=== PATIENT | female | born 1995 | race Two or more races ===

== ENCOUNTER 2017-11-04 07:08 | Day surgery (SDC) | payer OTHER, SELFPAY ==
[2017-11-04 07:29] LABS: Internal QC Validated? YES +Cl - CLEAR BKGD; Pregnancy, Urine Negative Negative
[2017-11-04 07:30] VITALS: BP 108/66; PULSE 84; RESP 16; O2SAT 100; BMI 27.0
[2017-11-04 07:42] LABS: Hematocrit 42.6 % (37-47); Hemoglobin 13.8 g/dl (12.0-15.0); Mean Corp Hgb Conc 32.4 g/gl (32-36); Mean Corpuscular Volume 89.5 fL (81-99); Mean Platelet Vol. 9.3 fl (6.2-12.0); Platelet Count 247 K/mm3 (150-450); RBC Distribution Width CV 13.7 % (11.6-14.6); RBC Distribution Width SD 44.9 fl (35.1-43.9); Red Blood Count 4.76 M/mm3 (4.2-5.4); White Blood Count 8.1 K/mm3 (4.4-11.0)
[2017-11-04 07:45] LABS: Scan Indicated on CBC? Y/N NO
--- NOTE | 2017-11-04 08:49 | PCM.DC ---
You will use the following diet at home:: No restrictions Discharge Activity: Return to Normal Activity, May not drive while taking narcotic pain medications. May resume sexual activity in: 4 weeks Call your doctor if your incision/area has: Foul Smelling Discharge, Swelling at the incision site Call your doctor if you observe: Fever of 101 or Higher Cleanse incision/area with: Soap & Water Allergies/Adverse Reactions: Allergies No Known Allergies Allergy (Verified 10/28/17 13:37) Medications to take at Discharge Fluoxetine [Prozac] 20 mg PO DAILY 10/28/17 Oxycodone HCl/Acetaminophen [Percocet 5/325] 1 tablet PO Q6H PRN PRN 10/28/17 Primary Care Physician: Lilly Harper,Out of [Primary Care Provider] - Please Follow Up With: Monique Corona MD When: 2 weeks post op
[2017-11-04 08:54] VITALS: BP 108/66; BP 114/95; PULSE 91; RESP 18; TEMP 36.5; O2SAT 98
[2017-11-04 08:55] VITALS: BP 108/66; BP 122/82; PULSE 89; RESP 18; O2SAT 97
[2017-11-04 09:00] VITALS: BP 108/66; BP 127/81; PULSE 81; RESP 18; O2SAT 98
[2017-11-04 09:05] VITALS: BP 108/66; BP 125/81; PULSE 81; RESP 18; TEMP 36.4; O2SAT 98
[2017-11-04 09:45] VITALS: BP 108/66
--- NOTE | 2017-11-04 10:02 | PCM.OP.BLANK ---
Operative Report Date of Procedure: 11/04/17 Surgeon: Dr. Monique Corona [employer] Processing Worker: Arleen Linder MS3 Surgery performed: Hymenectomy Pre OP diagnosis: Microperforate Hymen Post OP diagnosis: Same Complications: none EBL: 10cc Implantable devices: none Findings: tiny opening in hymen - minimal distance between urethra and site of micro Perforation of Hymen Operative note Informed consent was obtained the patient was taken the operating room she was placed in supine position. She was given MAC anesthesia and then she was placed in the [facility]. She was prepped and draped in the normal sterile fashion. Bladder was drained. Unable to penetrate the hymen for Betadine scrub. Catheter was left in situ in the urethra in order to keep constant visualization. at this time 1% lidocaine with epinephrine was injected in a circumferential fashion around the hymenal ring. Small Metzenbaum scissors were used to extend the micro perforation of the hymen posteriorly to the posterior fourchette. Metzenbaum scissors were then used to incise the tissue laterally I did not extend this anteriorly due to the close proximity of the urethra. The tissue edges that were cut were then tagged and sutured to the hymenal edges using a 3-0 repeat suture pressure was placed over the incision sites. Excellent hemostasis was appreciated. After the procedure I was able to perform a bimanual exam. Uterus small no adnexal masses were noted and cervix palpated normal. Vaginal sweep was performed it was negative anticipated normal postoperative course.
--- NOTE | 2017-11-04 10:09 | OP.PCM_ITS ---
Operative Report Date of Procedure: 11/04/17 Surgeon: Dr. Monique Corona [employer] Supervisor: Arleen Linder MS3 Surgery performed: Hymenectomy Pre OP diagnosis: Microperforate Hymen Post OP diagnosis: Same Complications: none EBL: 10cc Implantable devices: none Findings: tiny opening in hymen - minimal distance between urethra and site of micro Perforation of Hymen Operative note Informed consent was obtained the patient was taken the operating room she was placed in supine position. She was given MAC anesthesia and then she was placed in the [facility]. She was prepped and draped in the normal sterile fashion. Bladder was drained. Unable to penetrate the hymen for Betadine scrub. Catheter was left in situ in the urethra in order to keep constant visualization. at this time 1% lidocaine with epinephrine was injected in a circumferential fashion around the hymenal ring. Small Metzenbaum scissors were used to extend the micro perforation of the hymen posteriorly to the posterior fourchette. Metzenbaum scissors were then used to incise the tissue laterally I did not extend this anteriorly due to the close proximity of the urethra. The tissue edges that were cut were then tagged and sutured to the hymenal edges using a 3-0 repeat suture pressure was placed over the incision sites. Excellent hemostasis was appreciated. After the procedure I was able to perform a bimanual exam. Uterus small no adnexal masses were noted and cervix palpated normal. Vaginal sweep was performed it was negative anticipated normal postoperative course.
== END 2017-11-04 09:47 | disposition home or self-care (01) ==
LOC: SDC 07:10 → AC 08:44
PROVIDERS: Anesthesiology; Visit Provider Obstetrics & Gynecology
PROC: (CPT 56700; principal; 2017-11-04 08:20)
DX: Q52.3 Imperforate hymen (principal); F32.9 Major depressive disorder, single episode, unspecified; F41.9 Anxiety disorder, unspecified
CPT/HCPCS: 56700; 36415; 81025; 85027; J7120; J2405

== ENCOUNTER 2019-05-12 20:46 | Emergency (ER) | payer OTHER, SELFPAY ==
[2019-05-12 20:48] VITALS: BP 130/93; PULSE 124; RESP 18; TEMP 36.8; O2SAT 98; BMI 24.5
--- NOTE | 2019-05-12 21:01 | RAD_ITS ---
HISTORY: PALPITATIONS EXAM: XR Chest 2 Views: COMPARISON: None FINDINGS: # of images incl. paperwork: 2 Lungs are clear. Heart is not enlarged. Bones are normal. Pulmonary vascularity is distinct. No effusions. RAD/Chest PA and Lateral IMPRESSION: Normal. at 2149 Reported and signed by: Jeremy Randall MD Electronically Signed: Jeremy Randall MD at 21:48 EDT Tel , Service support ,
--- NOTE | 2019-05-12 21:01 | EKG12_ITS ---
Test Reason : TACHYCARDIA Blood Pressure : / mmHG Vent. Rate : 121 BPM Atrial Rate : 121 BPM P-R Int : 140 ms QRS Dur : 070 ms QT Int : 300 ms P-R-T Axes : 060 083 037 degrees QTc Int : 426 ms Sinus tachycardia Otherwise normal ECG Confirmed by RENATA MOORE ([id number]), department editor SUZIE GUTIERREZ ([id number]) on 05/15/2019 2:21:01 PM Referred By: JOCELYNN Confirmed By:RENATA MOORE
[2019-05-12 21:02] VITALS: PULSE 119
[2019-05-12 21:30] LABS: Absolute Lymphocyte Count 2.76 X10^3/uL (0.83-4.51); Absolute Neutrophil Count 4.3 X10^3/uL (2.0-7.7); Basophil# 0.06 X10^3/uL; Basophil% 0.7 % (0-1); Eosinophil# 0.09 X10^3/uL; Eosinophils% 1.1 % (0-5); Hemoglobin 13.7 g/dL (12.0-15.0); Lymphocyte # 2.76 X10^3/ul (4.0); Lymphocyte % 34.3 % (19-41); Mean Corp Hgb Conc 32.6 g/dL (32-36); Mean Corpuscular Hgb 29.3 pg (27.0-32.0); Mean Corpuscular Volume 89.9 fL (81-99); Mean Platelet Vol. 8.8 fl (6.2-12.0); NRBC Flagged by Analyzer 0 % (0-5); Neutrophil # 4.27 X10^3/uL (2.7-7.7); Neutrophil % 53.2 % (47-70); Platelet Count 259 K/mm3 (150-450); RBC Distribution Width CV 13.2 % (11.6-14.6); RBC Distribution Width SD 43.3 fl (35.1-43.9); Red Blood Count 4.67 M/mm3 (4.2-5.4)
[2019-05-12] MEDS: 0.9% Normal Saline 1,000 ML 1000 ML IV (21:46)
[2019-05-12 21:52] LABS: BUN 11 mg/dL (7-18); Creatinine, Serum 1.02 mg/dL (0.55-1.02); EST Glomerular Filtration Rate 72 mL/min (>60); Estimated Creatinine Clearance 87.27 ml/min; Glucose 83 mg/dL (74-106)
[2019-05-12 21:53] LABS: Anion Gap 4 (5-15); BUN/Creat Ratio 10.8 RATIO (10-20); Calcium,Total 9.4 mg/dL (8.5-10.1); Chloride 107 mmol/L (98-107); Est Glom Filt Rate - Afr Amer 87 mL/min (>60); Magnesium 2.1 mg/dL (1.6-2.6); Potassium 3.8 mmol/L (3.5-5.1); Sodium Level 140 mmol/L (136-145); Thyroid Stim Hormone (TSH) 1.14 uIU/mL (0.358-3.74)
[2019-05-12 21:55] LABS: Bacteria 0 SEEN /hpf (None Seen); Mucous, Urine 0 SEEN /hpf (<or=2+); Red Blood Cells-Urine 0 SEEN /hpf (0-5); White Blood Cells 0 SEEN /hpf (0-5)
[2019-05-12 22:01] LABS: Color, Urine Yellow (Yellow); Glucose, Dipstick Normal (Normal); Ketone-Dipstick 5 mg/dl (Negative); Leukocyte Esterase-Dipstick Negative /ul (Negative); Nitrite-Dipstick Negative (Negative); Occult Blood-Urine Negative /ul (Negative); Protein-Dipstick Negative (Negative); Specific Gravity, Urine 1.015 (1.002-1.030); Urine Bilirubin Dipstick Negative (Negative); Urine Clarity Sl. Cloudy (Clear); Urine Urobilinogen Normal (Normal)
[2019-05-12 22:18] LABS: Internal QC Validated? YES +Cl - CLEAR BKGD; Pregnancy, Urine Negative Negative
[2019-05-12 22:19] LABS: Amorphous Sediment 1+; Squamous Epithelial Cells - UA 0-5 SEEN /hpf (5-10)
--- NOTE | 2019-05-12 22:58 | ED.DCSUM_ITS ---
History of Present Illness Chief Complaint: Palpitations Informant: Patient Onset: Days Context: Gradual Onset Timing: Continuous Current Severity: Moderate Maximum Severity: Moderate Narrative: The patient presents to the emergency department with asymptomatic tachycardia. The patient was in her normal state of health. She states that she just recently got an exercise watch. She states that her heart rate has been anywhere from 100-1 20. She states is been constant. She denies any chest pain. She denies any dyspnea. She denies orthopnea. She states she is never had symptoms like this before. The patient was recently started on Adderall about a month ago. She states she is never taken her heart rate before. There is no family history of sudden cardiac . Prior similar symptoms: No Recent Illness/Hospitalization: No Past Medical History - Allergies and Home Meds Allergies/Adverse Reactions: Allergies No Known Allergies Allergy (Verified 05/12/19 20:50) Primary Care Physician: RICCARDO MONTAGUE [Other] Prior records reviewed: Yes Past Medical History: None Surgical History: no surgical history Smoking Status: Never smoker Review of Systems General: Denies: Chills, Fever, Sweats Eyes: Denies: Visual changes - bilaterally, Diplopia ENT: Denies: Rhinorrhea, Sore throat Cardiovascular: Reports: Heart racing. Denies: Chest pain, Palpitations Respiratory: Denies: Dyspnea, Cough, Dyspnea on exertion Gastrointestinal: Denies: Abdominal pain, Nausea, Vomiting, Diarrhea, Melena, Hematochezia Genitourinary: Denies: Dysuria, Hematuria, Frequency Musculoskeletal: Denies: Back pain, Extremity Pain Skin: Denies: Rash, Wounds Neurological: Denies: Headache, Weakness, Numbness Physical Exam Vital Signs/Narrative: Vital Signs Temp Pulse Resp BP Pulse Ox 05/12/19 21:02 119 H 05/12/19 20:48 98.2 F 124 H 18 130/93 H 98 Inital Vital Signs reviewed: Yes General: Well nourished, Well developed, No Acute Distress Head: Normocephalic, Atraumatic Eyes: Perrl, EOMI ENT: Moist mucous membranes, No rhinorrhea Neck: Supple, Nontender Cardiovascular: Regular rhythm, No murmurs, Tachycardia Respiratory: No distress, CTA bilaterally, Chest nontender Abdomen: Soft, Nontender, Nondistended, Normal bowel sounds Back: Nontender, Normal Inspection Extremities: Nontender, No edema Skin: Normal color, No rash Neurological: Alert, Oriented x3, Cranial nerves II-XII grossly intact, Normal Strength, Normal Sensation Psychological: Normal affect, Normal Mood Diagnostic/Tx/Re-eval Chest X-Ray - ED: 2 View, Read by ED Physician, Normal, Heart, Lungs, Mediastinum Clinical Impression(s) from Imaging Studies Chest X-Ray 05/12/19 21:01 IMPRESSION: Normal. at 2149 Reported and signed by: Jeremy Randall MD Electronically Signed: Jeremy Randall MD at 21:48 EDT Tel , Service support , Abnormal Lab Results 05/12/19 05/12/19 05/12/19 21:07 21:07 21:50 WBC 8.0 RBC 4.67 Hgb 13.7 Hct 42.0 MCV 89.9 MCH 29.3 MCHC 32.6 RDW Std Deviation 43.3 RDW Coeff of Carolyn 13.2 Plt Count 259 MPV 8.8 Immature Gran % (Auto) 0.700 Neut % (Auto) 53.2 Lymph % (Auto) 34.3 [place] % (Auto) 10.0 Eos % (Auto) 1.1 Baso % (Auto) 0.7 Absolute Neuts (auto) 4.3 Absolute Lymphs (auto) 2.76 Nucleated RBC % 0 Sodium 140 Potassium 3.8 Chloride 107 Carbon Dioxide 29.0 Anion Gap 4 L BUN 11 Creatinine 1.02 Estim Creat Clear Calc 87.27 Est GFR (MDRD) Af Amer 87 Est GFR (MDRD) Non-Af 72 BUN/Creatinine Ratio 10.8 Glucose 83 Calcium 9.4 Magnesium 2.1 TSH 1.14 Urine Color Urine Clarity Urine pH Ur Specific [place] Urine Protein Urine Glucose (UA) Urine Ketones Urine Occult Blood Urine Nitrite Urine Bilirubin Urine Urobilinogen Ur Leukocyte Esterase Urine RBC Urine WBC Ur Squamous Epith Cells Amorphous Sediment Urine Bacteria Urine Mucus Urine Test Negative 05/12/19 21:50 WBC RBC Hgb Hct MCV MCH MCHC RDW Std Deviation RDW Coeff of Carolyn Plt Count MPV Immature Gran % (Auto) Neut % (Auto) Lymph % (Auto) [place] % (Auto) Eos % (Auto) Baso % (Auto) Absolute Neuts (auto) Absolute Lymphs (auto) Nucleated RBC % Sodium Potassium Chloride Carbon Dioxide Anion Gap BUN Creatinine Estim Creat Clear Calc Est GFR (MDRD) Af Amer Est GFR (MDRD) Non-Af BUN/Creatinine Ratio Glucose Calcium Magnesium TSH Urine Color Yellow Urine Clarity Sl. Cloudy Urine pH 7.0 Ur Specific [place] 1.015 Urine Protein Negative Urine Glucose (UA) Normal Urine Ketones 5 H Urine Occult Blood Negative Urine Nitrite Negative Urine Bilirubin Negative Urine Urobilinogen Normal Ur Leukocyte Esterase Negative Urine RBC 0 SEEN Urine WBC 0 SEEN Ur Squamous Epith Cells 0-5 SEEN Amorphous Sediment 1+ Urine Bacteria 0 SEEN Urine Mucus 0 SEEN Urine Test - Rhythm Strip Rhythm Strip: Sinus Tach Rate: 110 Ectopy: None - EKG Initial EKG Interpretation: No Acute Injury Pattern, Sinus Tachycardia Prior: No Prior - Medical Decision Making The patient presents with asymptomatic tachycardia. My suspicion is that this is likely medication mediated. However, she is never had symptoms like this before. Metabolic work-up was pursued. Screening labs were obtained. The patient's TSH and electrolytes are unremarkable. Her x-ray shows no evidence of volume overload. Her repeat heart rate was 98. At this point, I do feel that she is safe for outpatient follow-up. I do feel the safest thing would be to stop the Adderall. She is comfortable with this plan of care and will be disch arged home. Impression 1. Tachycardia secondary to medication effect ED Disposition - Plan for ED Patient: Disposition: Home or Assisted Living Instructions: Palpitations Referrals: RICCARDO MONTAGUE [Other] Additional Instructions: I recommend stopping the Adderall. I do feel this is was causing her elevated heart rate.
[2019-05-12 23:18] VITALS: BP 115/79; PULSE 102; RESP 20; O2SAT 97
== END 2019-05-12 23:23 | disposition home or self-care (01) ==
LOC: ED 21:10
PROVIDERS: Emergency Provider Emergency Medicine
DX: R00.0 Tachycardia, unspecified (principal); T43.625A Adverse effect of amphetamines, initial encounter
CPT/HCPCS: 71046; 80048; 81001; 81025; 83735; 84443; 85025; 93005; 96360; 99283; J7030